=== PATIENT | male | born 1990 | race Caucasian/White ===

== ENCOUNTER 2025-03-13 14:31 | Emergency (ER) | payer SELFPAY ==
[~2025-03-13] VITALS: Ht 180.3 cm; Wt 120.0 kg
[2025-03-13 14:38] VITALS: TEMP 36.9; O2SAT 99
[2025-03-13] MEDS: LIDOCAINE 5% PATCH TOP SCH (15:03)
[2025-03-13] MEDS ORDERED: LIDO-53 TP (15:13)
[2025-03-13] MEDS ORDERED: GABA-1180 MT (15:13)
[2025-03-13] MEDS ORDERED: PRED10TA23 MT (15:13)
[2025-03-13] MEDS: DEXAMETHASONE 10 MG/ML VIAL IM ONE (15:19)
[2025-03-13 15:20] VITALS: BP 114/79; PULSE 75; RESP 18
[2025-03-13] MEDS: KETOROLAC 30MG/ML VIAL IM ONE (15:20)
== END 2025-03-13 15:42 | disposition home or self-care (01) ==
LOC: ER 14:51
DX: G89.29 Other chronic pain (principal); M54.9 Dorsalgia, unspecified; Z79.899 Other long term (current) drug therapy
CPT/HCPCS: 99284; 96372; J1885; J1100